=== PATIENT | male | born 2000 | race African-American/Black ===

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

== ENCOUNTER 2022-01-13 15:51 | Emergency (ER) | payer OTHER | END 2022-01-13 17:42 | disposition home or self-care (01) | LOC: ERS 15:51 | DX: H61.23 Impacted cerumen, bilateral (principal) | CPT/HCPCS: 69210 ==

== ENCOUNTER 2023-12-14 16:35 | Emergency (ER) | payer OTHER, SELFPAY ==
[2023-12-14 19:16] LABS: Bacteria/HPF None Seen HPF (None Seen); Bilirubin Negative (Negative); Blood, Urine Negative (Negative); CAUTI Indications for Culture Pelvic or flank pain; Clarity Clear (Clear); Glucose, Urine (Dipstick) Normal (Negative); Ketone, Urine Negative (Negative); Leukocyte Negative Leu/uL (Negative); Nitrite Negative (Negative); Protein, Urine (Dipstick) 30 mg/dL (Neg-Trace); RBC/HPF 0-3 HPF (0-3); Specific Gravity, Urine 1.026 (1.002-1.036); Squamous Epithelial 0-3 HPF (0-3)
[2023-12-14 19:19] LABS: Urine Culture Reflex No No
[2023-12-14 19:51] LABS: HIV (1/2) Antibody/Antigen NONREACTIVE (NonReactive); HIV 1/2 INDEX 0.06 S/CO (<1.00)
[2023-12-15 11:47] LABS: Syphilis Antibody REACTIVE (Nonreactive)
[2023-12-15 13:13] LABS: Chlam.trachomatis by PCR,Urine Not Detected (NotDetected); GC N.gonorrhoeae PCR,UrineVOID Not Detected (NotDetected)
== END 2023-12-14 20:20 | disposition home or self-care (01) ==
LOC: ERS 16:35
DX: L02.214 Cutaneous abscess of groin (principal); B00.9 Herpesviral infection, unspecified
CPT/HCPCS: 36415; 81001; 86593; 86780; 87389; 87491; 87591; 99284